=== PATIENT | female | born 1965 | race Caucasian/White ===

== ENCOUNTER 2016-12-02 19:20 | Emergency (ER) | payer MEDICARE, MEDICAID ==
[~2016-12-02] VITALS: Ht 157.5 cm; Wt 100.8 kg
[2016-12-02] MEDS ORDERED: ATORVASTATIN CA40 MG PO (19:46)
[2016-12-02] MEDS ORDERED: LOPRESSOR50 M1 PO (19:46)
[2016-12-02] MEDS ORDERED: PLAVIX75 MG PO (19:46)
[2016-12-02] MEDS ORDERED: PEPCID20 MG PO (19:47)
[2016-12-02] MEDS ORDERED: CO Q 10100 MG PO (19:47)
[2016-12-02] MEDS ORDERED: LEVOTHYROXIN137 MCG PO (19:48)
[2016-12-02] MEDS ORDERED: ASPIRIN 8181 MG PO (19:49)
[2016-12-02] MEDS ORDERED: PERCOCET 5/325M1 TAB PO (21:33)
[2016-12-02 21:45] VITALS: BP 126/74
== END 2016-12-02 21:45 | disposition home or self-care (01) ==
LOC: ED 19:20
DX: S80.11XA Contusion of right lower leg, initial encounter (principal); W22.09XA Striking against other stationary object, initial encounter; Y93.E6 Activity, residential relocation; Y92.007 Garden or yard of unspecified non-institutional (private) residence as the place of occurrence of the external cause

== ENCOUNTER 2017-08-31 22:53 | Emergency (ER) | payer MEDICARE, MEDICAID ==
[~2017-08-31] VITALS: Ht 157.5 cm; Wt 98.6 kg
[~2017-08-31 22:53] MED LIST: ASPIRIN 8181 MG PO; ATORVASTATIN CA40 MG PO; CO Q 10100 MG PO; LEVOTHYROXIN137 MCG PO; LOPRESSOR50 M1 PO; PEPCID20 MG PO; PERCOCET 5/325M1 TAB PO; PLAVIX75 MG PO
[2017-09-01] MEDS ORDERED: PERCOCET 5/325M1 TAB PO (03:01)
[2017-09-01 04:52] VITALS: BP 132/76
== END 2017-09-01 04:50 | disposition home or self-care (01) ==
LOC: ED 22:53
DX: S93.401A Sprain of unspecified ligament of right ankle, initial encounter (principal); G89.29 Other chronic pain; M54.9 Dorsalgia, unspecified; E03.9 Hypothyroidism, unspecified; I25.2 Old myocardial infarction; W19.XXXA Unspecified fall, initial encounter; Y92.009 Unspecified place in unspecified non-institutional (private) residence as the place of occurrence of the external cause

== ENCOUNTER 2018-01-12 22:02 | Emergency (ER) | payer MEDICARE, MEDICAID ==
[~2018-01-12] VITALS: Ht 157.5 cm; Wt 94.0 kg
[2018-01-12] MEDS ORDERED: ABILIFY5 MG PO (22:12)
[2018-01-12 22:34] LABS: HEMATOCRIT 46.9 % (37.0-47.0); HEMOGLOBIN 15.6 g/dl (12.0-16.0); IMMATURE GRANULOCYTES 0.4 % (0.0-1.0); MEAN CELL VOLUME 89.3 fL CALC (80.0-100.0); MEAN CORPUSCULAR HGB 29.7 pG CALC (26.0-32.0); MEAN CORPUSCULAR HGB CONC 33.3 g/L CALC (32.0-36.0); NEUT# 8.57 thou/uL (2.00-7.15); RED BLOOD COUNT 5.25 mill/uL (4.20-5.60); RED CELL DISTRI WIDTH 13.4 % (11.5-15.5)
[2018-01-12 22:35] LABS: URINE BILIRUBIN - DIPSTICK NEGATIVE (NEGATIVE); URINE BLOOD DIPSTICK SMALL (NEGATIVE); URINE CLARITY SL CLOUDY; URINE COLOR YELLOW; URINE GLUCOSE - DIPSTICK NEGATIVE (NEGATIVE); URINE KETONE NEGATIVE (NEGATIVE); URINE LEUK ESTERASE NEGATIVE (NEGATIVE); URINE NITRITE - DIPSTICK NEGATIVE (Negative); URINE PH 5.5 (4.5-8.0); URINE PROTEIN - DIPSTICK NEGATIVE (NEG-TRACE); URINE SPECIFIC GRAVITY >=1.030; URINE UROBILINOGEN - DIPSTICK 0.2 E.U./dL (0.2)
[2018-01-12 22:43] LABS: URINE BACTERIA FEW hpf; URINE CALCIUM OXALATE CRYSTALS MODERATE lpf; URINE MUCUS MANY hpf (NONE-FEW); URINE SQUAMOUS EPITHELIAL CELL MANY EPI/hpf (0-FEW)
[2018-01-12 22:47] LABS: ALBUMIN 4.3 g/dL (3.2-5.0); ALKALINE PHOSPHATASE 123 u/l (38-126); AMYLASE 61 u/l (30-110); ANION GAP 15 (6-22 (CALC)); BILIRUBIN, TOTAL 0.8 mg/dL (0.0-1.4); BUN 12 mg/dL (7-17); BUN/CREATININE RATIO 16 (12-20 (CALC)); CARBON DIOXIDE 28 mmol/l (22-30); CHLORIDE 105 mmol/l (95-108); CREATININE 0.8 mg/dL (0.5-1.0); GFR > 60 ML/MIN (>=60 (CALC)); GFR FOR AFR.AMER. > 60 ML/MIN (>=60 (CALC)); LIPASE 75 u/l (23-300); POTASSIUM 3.4 mmol/l (3.5-5.1); SGOT/AST 46 u/l (14-36); SGPT/ALT 52 u/l (9-52); SODIUM 144 mmol/l (137-146); TOTAL PROTEIN 7.9 g/dL (6.3-8.2)
[2018-01-13] MEDS ORDERED: CIPROFLOXACN500 MG PO (01:49)
[2018-01-13] MEDS ORDERED: LORTAB 1010 MG PO (01:49)
[2018-01-13 02:13] VITALS: BP 110/64
== END 2018-01-13 02:13 | disposition home or self-care (01) ==
LOC: ED 22:02
PROVIDERS: Emergency Medicine
DX: N13.6 Pyonephrosis (principal); R11.2 Nausea with vomiting, unspecified; R10.9 Unspecified abdominal pain; Z87.442 Personal history of urinary calculi
CPT/HCPCS: Q9967

== ENCOUNTER 2019-01-24 21:17 | Emergency (ER) | payer MEDICARE, MEDICAID ==
[~2019-01-24] VITALS: Ht 157.5 cm; Wt 100.0 kg
[~2019-01-24 21:17] MED LIST changes: +ABILIFY5 MG PO; +CIPROFLOXACN500 MG PO; +LORTAB 1010 MG PO
[2019-01-24 22:00] LABS: HEMATOCRIT 43.3 % (37.0-47.0); HEMOGLOBIN 14.2 g/dl (12.0-16.0); IMMATURE GRANULOCYTES 0.4 % (0.0-5.0); MEAN CELL VOLUME 88.2 fL CALC (80.0-100.0); MEAN CORPUSCULAR HGB 28.9 pG CALC (26.0-32.0); MEAN CORPUSCULAR HGB CONC 32.8 g/L CALC (32.0-36.0); NEUT# 6.48 thou/uL (2.00-7.15); RED BLOOD COUNT 4.91 mill/uL (4.20-5.60); RED CELL DISTRI WIDTH 13.6 % (11.5-15.5)
[2019-01-24 22:02] LABS: URINE BILIRUBIN - DIPSTICK NEGATIVE (NEGATIVE); URINE BLOOD DIPSTICK TRACE-INTACT (NEGATIVE); URINE COLOR YELLOW; URINE GLUCOSE - DIPSTICK NEGATIVE (NEGATIVE); URINE KETONE NEGATIVE (NEGATIVE); URINE LEUK ESTERASE TRACE (NEGATIVE); URINE NITRITE - DIPSTICK NEGATIVE (Negative); URINE PH 5.5 (4.5-8.0); URINE PROTEIN - DIPSTICK NEGATIVE (NEG-TRACE); URINE SPECIFIC GRAVITY >=1.030
[2019-01-24 22:36] LABS: ALBUMIN 3.7 g/dL (3.2-5.0); ALKALINE PHOSPHATASE 106 u/l (38-126); ANION GAP 11 (6-22 (CALC)); BILIRUBIN, TOTAL 0.5 mg/dL (0.0-1.4); BUN 14 mg/dL (7-17); BUN/CREATININE RATIO 21 (12-20 (CALC)); CARBON DIOXIDE 28 mmol/l (22-30); CHLORIDE 107 mmol/l (95-108); CREATININE 0.6 mg/dL (0.5-1.0); GFR > 60 ML/MIN (>=60 (CALC)); GFR FOR AFR.AMER. > 60 ML/MIN (>=60 (CALC)); POTASSIUM 3.7 mmol/l (3.5-5.1); SGOT/AST 20 u/l (14-36); SODIUM 143 mmol/l (137-146); TOTAL PROTEIN 6.5 g/dL (6.3-8.2)
[2019-01-24] MEDS ORDERED: TORADOL PO (23:16)
[2019-01-24 23:35] VITALS: BP 116/66
== END 2019-01-24 23:39 | disposition home or self-care (01) ==
LOC: ED 21:17
PROVIDERS: Family Medicine
DX: M25.551 Pain in right hip (principal); R10.31 Right lower quadrant pain; E03.9 Hypothyroidism, unspecified; Z87.442 Personal history of urinary calculi

== ENCOUNTER 2019-04-19 20:55 | Emergency (ER) | payer MEDICARE, MEDICAID ==
[~2019-04-19] VITALS: Ht 157.5 cm; Wt 96.4 kg
[~2019-04-19 20:55] MED LIST changes: +TORADOL PO
[2019-04-19] MEDS ORDERED: MONTELUKAST SOD10 MG PO (21:41)
[2019-04-19] MEDS ORDERED: ALENDRONATE SOD70 MG PO (21:41)
[2019-04-19] MEDS ORDERED: SYNTHROID175 MCG PO (21:42)
[2019-04-19] MEDS ORDERED: TRAZODONE50 MG PO (21:43)
[2019-04-19] MEDS ORDERED: TRAMADOL HCL50 MG PO (22:51)
[2019-04-19 23:00] VITALS: BP 128/77
== END 2019-04-19 23:08 | disposition home or self-care (01) ==
LOC: ED 20:55
DX: S93.401A Sprain of unspecified ligament of right ankle, initial encounter (principal); S93.601A Unspecified sprain of right foot, initial encounter; W01.0XXA Fall on same level from slipping, tripping and stumbling without subsequent striking against object, initial encounter; X50.1XXA Overexertion from prolonged static or awkward postures, initial encounter; Y92.009 Unspecified place in unspecified non-institutional (private) residence as the place of occurrence of the external cause

== ENCOUNTER 2019-04-26 11:31 | Emergency (ER) | payer MEDICARE, MEDICAID ==
[~2019-04-26] VITALS: Ht 157.5 cm; Wt 96.0 kg
[~2019-04-26 11:31] MED LIST changes: +ALENDRONATE SOD70 MG PO; +MONTELUKAST SOD10 MG PO; +SYNTHROID175 MCG PO; +TRAMADOL HCL50 MG PO; +TRAZODONE50 MG PO
[2019-04-26] MEDS ORDERED: ASPIRIN 81 LOW81 MG PO (12:13)
[2019-04-26] MEDS ORDERED: LORTAB 1010 MG PO (12:47)
[2019-04-26] MEDS ORDERED: FLEXERIL PO (12:48)
[2019-04-26 12:59] VITALS: BP 130/75
== END 2019-04-26 13:26 | disposition home or self-care (01) ==
LOC: ED 11:31
DX: S33.5XXA Sprain of ligaments of lumbar spine, initial encounter (principal); E03.9 Hypothyroidism, unspecified; X50.0XXA Overexertion from strenuous movement or load, initial encounter; Y92.89 Other specified places as the place of occurrence of the external cause

== ENCOUNTER 2020-01-09 12:13 | Emergency (ER) | payer MEDICARE, MEDICAID ==
[~2020-01-09 12:13] MED LIST changes: +ASPIRIN 81 LOW81 MG PO; +FLEXERIL PO
[2020-01-09 14:53] VITALS: BP 130/81
== END 2020-01-09 14:57 | disposition home or self-care (01) ==
LOC: ED 12:13
DX: R07.81 Pleurodynia (principal); E03.9 Hypothyroidism, unspecified; I25.2 Old myocardial infarction

== ENCOUNTER 2020-01-13 19:18 | Observation (INO) | payer MEDICARE, MEDICAID ==
[~2020-01-13] VITALS: Ht 157.5 cm; Wt 89.5 kg
--- NOTE | 2020-01-13 19:39 | NUR ---
PT. TO ROOM 9 WITH C/O EPIGASTRIC CP STARTING APPROX 45 MIN AGO. PT. STATES SHE HAD A MS WITH STENT PLACEMENT 5 YEARS AGO.
[2020-01-13] MEDS ORDERED: DITROPAN5 MG/TA1 PO (20:17)
[2020-01-13] MEDS ORDERED: METOPROLOL SUCC50 MG PO (20:18)
[2020-01-13 20:19] LABS: HEMOGLOBIN 13.4 g/dl (12.0-16.0); IMMATURE GRANULOCYTES 0.5 % (0.0-5.0); MEAN CORPUSCULAR HGB 27.7 pG CALC (26.0-32.0); MEAN CORPUSCULAR HGB CONC 31.9 g/dL CAL (32.0-36.0); NEUT# 7.12 thou/uL (2.00-7.15); RED BLOOD COUNT 4.83 mill/uL (4.20-5.60); RED CELL DISTRI WIDTH 14.7 % (11.5-15.5)
[2020-01-13] MEDS ORDERED: AMLODIPINE BESYL5 MG PO (20:20)
[2020-01-13 20:22] LABS: URINE BILIRUBIN - DIPSTICK NEGATIVE (NEGATIVE); URINE BLOOD DIPSTICK NEGATIVE (NEGATIVE); URINE COLOR YELLOW; URINE GLUCOSE - DIPSTICK NEGATIVE (NEGATIVE); URINE KETONE NEGATIVE (NEGATIVE); URINE NITRITE - DIPSTICK NEGATIVE (Negative); URINE PROTEIN - DIPSTICK NEGATIVE (NEG-TRACE); URINE UROBILINOGEN - DIPSTICK 0.2 E.U./dL (0.2)
[2020-01-13 20:24] LABS: URINE LEUK ESTERASE MODERATE (NEGATIVE)
[2020-01-13 20:30] LABS: URINE RBC 0-2 RBC/hpf (0-5); URINE SQUAMOUS EPITHELIAL CELL FEW EPI/hpf (0-FEW)
[2020-01-13 20:32] LABS: BARBITURATES NEGATIVE (NEGATIVE); COCAINE NEGATIVE (NEGATIVE); METHADONE NEGATIVE (NEGATIVE); OXCYCODONE NEGATIVE (NEGATIVE); TETRAHYDROCANNABIONOL NEGATIVE (NEGATIVE); TRICYLIC ANTIDEPRESSANTS NEGATIVE (NEGATIVE)
[2020-01-13 20:37] LABS: ALBUMIN 4.2 g/dL (3.2-5.0); ALKALINE PHOSPHATASE 119 u/l (38-126); AMYLASE 81 u/l (30-110); ANION GAP 10 (6-22 (CALC)); BILIRUBIN, TOTAL 0.8 mg/dL (0.0-1.4); BUN 13 mg/dL (7-17); BUN/CREATININE RATIO 19 (12-20 (CALC)); CARBON DIOXIDE 30 mmol/l (22-30); CHLORIDE 103 mmol/l (95-108); CREATININE 0.7 mg/dL (0.5-1.0); GFR > 60 ML/MIN (>=60 (CALC)); GFR FOR AFR.AMER. > 60 ML/MIN (>=60 (CALC)); LIPASE 96 u/l (23-300); SGOT/AST 42 u/l (14-36); SODIUM 139 mmol/l (137-146); TOTAL PROTEIN 8.1 g/dL (6.3-8.2)
--- NOTE | 2020-01-13 20:39 | NUR ---
PT. STATES SHE STILL HAS A C/O EPIGASTRIC PAIN.
[2020-01-13 20:46] LABS: POTASSIUM 4.3 mmol/l (3.5-5.1)
[2020-01-13 20:49] LABS: MYOGLOBIN 76 ng/mL (0 - 62)
--- NOTE | 2020-01-13 20:59 | NUR ---
IV PAIN MED AND IV ANTIEMETIC GIVEN PER MD ORDER.
--- NOTE | 2020-01-13 21:30 | NUR ---
MD IN ROOM TO DISCUSS CLINICAL FINDINGS AND MAKE PT. AWARE OF ADMISSION, PT. VERBALIZED UNDERSTANDING.
--- NOTE | 2020-01-13 21:44 | NUR ---
PT. STATES HER EPI GASTRIC PAIN IS NOW DECREASED TO A 6 ON A SCALE OF 1-10.
--- NOTE | 2020-01-13 22:33 | NUR ---
Admission Note Report Given to: RAN TORREZ Transported by: Wheelchair X Stretcher Transported with: X Nurse Transporter X Patent IV O2 X Chief Construction Inspector Location: ICU X [facility]
--- NOTE | 2020-01-13 22:34 | NUR ---
TO [facility] FLOOR VIA STRETCHER.
[2020-01-13 23:35] VITALS: BP 130/86
--- NOTE | 2020-01-14 00:37 | NUR ---
PT ARRIVES TO UNIT 01/13/20 @ 2240 VIA WC, ACCOMPANIED BY Minnie TANG RN. PT ADMITTED TO ROOM 262. ORIENTED TO UNIT AND ROOM. PHYSICAL ASSESMENT COMPLETE. VS TAKEN BY SUPERVISOR [employer]S EDUCATION ASSESSED. PLAN OF CARE REVIEWED. PT VERBALIZES UNDERSTANDING AND DENIES QUESTIONS. PROVIDED W/ TV DINNER TRAY. DENIES FURTHER NEEDS @ THIS TIME. BED LOCKED IN LOW POSITION W/ BEDRAILS UP X2. ITEMS WITHIN REACH. CALL YANEZ WITHIN REACH, AGREES TO CALL PRN.
[2020-01-14 03:36] VITALS: BP 93/68
--- NOTE | 2020-01-14 05:56 | NUR ---
PHYSICAL ASSESMENT REMAINS UNCHANGED FROM START OF SHIFT BASELINE. AM VS AND TELEMETRY READING ASSESSED. PT RESTING IN BED COMFORTABLY, DENIES NEEDS @ THIS TIME. ITEMS REMAIN WITHIN REACH. BED REMAINS LOCKED IN LOW POSITION W/ BED RAILS UP X2. CALL YANEZ REMAINS WITHIN REACH, AGREES TO CALL PRN.
[2020-01-14 10:59] VITALS: BP 101/60
[2020-01-14] MEDS ORDERED: KEFLEX500 MG PO (12:18)
--- NOTE | 2020-01-14 13:02 | NUR ---
RESIDENT IS ALERT AND ORIENTED AND ABLE TO MAKE NEEDS KNOWN. SKIN INTACT AND WARM TO TOUCH. MEDICATIONS GIVEN AND TOLERATED WELL. RESIENT MEAL AND FLUID INTAKE GOOD. RESIDENT TO BE DISCHARGEDC HOME TODAY. DENIES PAIN OR DISCOMFORT. CONTINENT OF B/B AND ABLE TO SELF ASSIST TO TOILET. CALL LIGHT WITHIN REACH. WILL CONTINUE TO OBSERVE
--- NOTE | 2020-01-14 17:07 | NUR ---
RESIDENT DISCHARGED HOME AT 4PM. DISCUSSED AND EDUCATED ON DISCHARGE MEDICATIONS AND INSTRUCTIONS AND RESIDENT STATED SHE UNDERSTOOD. ALL PERSONAL BELONGING TAKEN WITH RESIDENT. RESIDENT EDUCATED THAT SHE SHOULD CONTINUE abT THERAPY AT HOME FOR UTI AND WHAT PHARMACY TO PICK MEDICATION UP FROM AND RESIDNET STATED THAT SHE UNDERSTOOD. TELEMETRY REMOVED AND iv REMOVED FROM RAC. RESIDENT TOLERATED WELL.
== END 2020-01-14 16:12 | disposition home or self-care (01) ==
LOC: ED 19:18 → ED-I 21:27 → ED 21:28 → MS2 21:29 → ED-I 21:29 → MS2 21:30
PROVIDERS: Emergency Medicine; ADMIT Internal Medicine; ATTEND Internal Medicine
DX: R07.9 Chest pain, unspecified (principal); N39.0 Urinary tract infection, site not specified; F41.9 Anxiety disorder, unspecified; I25.10 Atherosclerotic heart disease of native coronary artery without angina pectoris; I25.2 Old myocardial infarction; E03.9 Hypothyroidism, unspecified; E66.9 Obesity, unspecified; Z68.36 Body mass index [BMI] 36.0-36.9, adult; Z87.440 Personal history of urinary (tract) infections; Z87.891 Personal history of nicotine dependence; Z79.02 Long term (current) use of antithrombotics/antiplatelets; Z95.5 Presence of coronary angioplasty implant and graft; Z11.59 Encounter for screening for other viral diseases
CPT/HCPCS: G0378; S0164

== ENCOUNTER 2021-01-18 22:01 | Emergency (ER) | payer MEDICARE, MEDICAID ==
[~2021-01-18] VITALS: Ht 157.5 cm; Wt 97.0 kg
[~2021-01-18 22:01] MED LIST changes: +AMLODIPINE BESYL5 MG PO; +DITROPAN5 MG/TA1 PO; +KEFLEX500 MG PO; +METOPROLOL SUCC50 MG PO
[2021-01-18 23:26] LABS: HEMATOCRIT 45.1 % (37.0-47.0); HEMOGLOBIN 14.6 g/dl (12.0-16.0); IMMATURE GRANULOCYTES 0.2 % (0.0-5.0); MEAN CELL VOLUME 89.3 fL CALC (80.0-100.0); MEAN CORPUSCULAR HGB 28.9 pG CALC (26.0-32.0); MEAN CORPUSCULAR HGB CONC 32.4 g/dL CAL (32.0-36.0); NEUT# 6.87 thou/uL (2.00-7.15); RED BLOOD COUNT 5.05 mill/uL (4.20-5.60); RED CELL DISTRI WIDTH 14.4 % (11.5-15.5)
[2021-01-18 23:33] LABS: ACT PARTIAL THROMBO TIME 22.1 SECONDS (20.0-32.5); PROTHROMBIN TIME 9.9 SECONDS (9.0-12.5)
[2021-01-18 23:34] LABS: ALBUMIN 3.8 g/dL (3.2-5.0); ALKALINE PHOSPHATASE 92 u/l (38-126); AMYLASE 42 u/l (30-110); ANION GAP 10 (6-22 (CALC)); BUN 14 mg/dL (7-17); BUN/CREATININE RATIO 21 (12-20 (CALC)); CARBON DIOXIDE 30 mmol/l (22-30); CHLORIDE 102 mmol/l (95-108); CREATININE 0.7 mg/dL (0.5-1.0); GFR > 60 ML/MIN (>=60 (CALC)); GFR FOR AFR.AMER. > 60 ML/MIN (>=60 (CALC)); LIPASE 80 u/l (23-300); POTASSIUM 3.8 mmol/l (3.5-5.1); SGOT/AST 33 u/l (14-36); SODIUM 138 mmol/l (137-146); TOTAL PROTEIN 7.1 g/dL (6.3-8.2)
[2021-01-18 23:37] LABS: BILIRUBIN, TOTAL 0.5 mg/dL (0.0-1.4)
[2021-01-18 23:43] LABS: D-DIMER 0.37 mg/L (0.19-0.60)
[2021-01-19 00:10] VITALS: BP 119/76
== END 2021-01-19 00:10 | disposition left against medical advice (07) ==
LOC: ED 22:01
DX: R07.9 Chest pain, unspecified (principal); I25.2 Old myocardial infarction; Z95.5 Presence of coronary angioplasty implant and graft; Z91.19 Patient's noncompliance with other medical treatment and regimen; Z20.822 Contact with and (suspected) exposure to COVID-19

== ENCOUNTER 2021-07-12 15:00 | Emergency (ER) | payer MEDICARE, MEDICAID ==
[~2021-07-12] VITALS: Ht 157.5 cm; Wt 80.0 kg
[2021-07-12 18:59] VITALS: BP 118/68
== END 2021-07-12 19:11 | disposition home or self-care (01) ==
LOC: ED 15:00
DX: M25.571 Pain in right ankle and joints of right foot (principal); E66.9 Obesity, unspecified; Z68.32 Body mass index [BMI] 32.0-32.9, adult; Z95.5 Presence of coronary angioplasty implant and graft; M79.661 Pain in right lower leg

== ENCOUNTER 2021-09-29 13:21 | Emergency (ER) | payer MEDICARE, MEDICAID ==
[~2021-09-29] VITALS: Ht 157.5 cm; Wt 105.0 kg
[2021-09-29 13:58] LABS: GFR > 60 ML/MIN (>=60 (CALC)); GFR FOR AFR.AMER. > 60 ML/MIN (>=60 (CALC))
[2021-09-29 14:03] LABS: HEMATOCRIT 46.4 % (37.0-47.0); HEMOGLOBIN 14.8 g/dl (12.0-16.0); IMMATURE GRANULOCYTES 0.1 % (0.0-5.0); MEAN CELL VOLUME 88.4 fL CALC (80.0-100.0); MEAN CORPUSCULAR HGB 28.2 pG CALC (26.0-32.0); MEAN CORPUSCULAR HGB CONC 31.9 g/dL CAL (32.0-36.0); NEUT# 10.43 thou/uL (2.00-7.15); RED BLOOD COUNT 5.25 mill/uL (4.20-5.60); RED CELL DISTRI WIDTH 14.2 % (11.5-15.5)
[2021-09-29 14:06] LABS: ALBUMIN 3.5 g/dL (3.2-5.0); ALKALINE PHOSPHATASE 129 u/l (38-126); ANION GAP 13 (6-22 (CALC)); BILIRUBIN, TOTAL 0.7 mg/dL (0.0-1.4); BUN 12 mg/dL (7-17); BUN/CREATININE RATIO 17 (12-20 (CALC)); CARBON DIOXIDE 26 mmol/l (22-30); CHLORIDE 106 mmol/l (95-108); CREATININE 0.7 mg/dL (0.5-1.0); GFR > 60 ML/MIN (>=60 (CALC)); GFR FOR AFR.AMER. > 60 ML/MIN (>=60 (CALC)); LIPASE 40 u/l (23-300); POTASSIUM 3.4 mmol/l (3.5-5.1); SGOT/AST 25 u/l (14-36); SODIUM 142 mmol/l (137-146); TOTAL PROTEIN 6.8 g/dL (6.3-8.2)
[2021-09-29 15:50] LABS: URINE BILIRUBIN - DIPSTICK NEGATIVE (NEGATIVE); URINE BLOOD DIPSTICK TRACE-INTACT (NEGATIVE); URINE COLOR YELLOW; URINE GLUCOSE - DIPSTICK NEGATIVE (NEGATIVE); URINE KETONE NEGATIVE (NEGATIVE); URINE LEUK ESTERASE NEGATIVE (NEGATIVE); URINE PROTEIN - DIPSTICK NEGATIVE (NEG-TRACE); URINE UROBILINOGEN - DIPSTICK 0.2 E.U./dL (0.2)
[2021-09-29 16:03] LABS: URINE NITRITE - DIPSTICK NEGATIVE (Negative)
[2021-09-29] MEDS ORDERED: ZOFRAN4 MG/TAB PO (17:42)
[2021-09-29 18:00] VITALS: BP 104/70
== END 2021-09-29 18:00 | disposition home or self-care (01) ==
LOC: ED 13:21
PROVIDERS: Family Medicine
DX: R10.11 Right upper quadrant pain (principal); R10.13 Epigastric pain; R11.2 Nausea with vomiting, unspecified; I10 Essential (primary) hypertension; E66.9 Obesity, unspecified; Z68.41 Body mass index [BMI] 40.0-44.9, adult; Z95.5 Presence of coronary angioplasty implant and graft; R07.9 Chest pain, unspecified
CPT/HCPCS: Q9967

== ENCOUNTER 2022-01-01 09:01 | Emergency (ER) | payer MEDICARE, MEDICAID ==
[~2022-01-01] VITALS: Ht 157.5 cm; Wt 100.0 kg
[2022-01-01] VITALS (9 sets, daily range): BP systolic 97–122; BP diastolic 42–69
[~2022-01-01 09:01] MED LIST changes: +ZOFRAN4 MG/TAB PO
[2022-01-01] MEDS ORDERED: PERCOCET 5/325M1 TAB PO (09:26)
[2022-01-01] MEDS ORDERED: DOXYCYCLINE100 MG PO (10:42)
== END 2022-01-01 11:24 | disposition home or self-care (01) ==
LOC: ED 09:01
DX: S90.414A Abrasion, right lesser toe(s), initial encounter (principal); L03.031 Cellulitis of right toe; I10 Essential (primary) hypertension; F41.9 Anxiety disorder, unspecified; E05.90 Thyrotoxicosis, unspecified without thyrotoxic crisis or storm; W22.8XXA Striking against or struck by other objects, initial encounter; Y92.009 Unspecified place in unspecified non-institutional (private) residence as the place of occurrence of the external cause; Z95.5 Presence of coronary angioplasty implant and graft

== ENCOUNTER 2022-03-04 16:36 | Emergency (ER) | payer OTHER, MEDICAID, MEDICARE ==
[2022-03-04] VITALS (9 sets, daily range): BP systolic 109–145; BP diastolic 61–100
[~2022-03-04] VITALS: Ht 157.5 cm; Wt 100.0 kg
[~2022-03-04 16:36] MED LIST changes: +DOXYCYCLINE100 MG PO
[2022-03-04 17:19] LABS: IMMATURE GRANULOCYTES 0.1 % (0.0-5.0); MEAN CELL VOLUME 87.8 fL CALC (80.0-100.0); NEUT# 5.62 thou/uL (2.00-7.15); RED BLOOD COUNT 4.49 mill/uL (4.20-5.60)
[2022-03-04 17:20] LABS: HEMATOCRIT 39.4 % (37.0-47.0)
[2022-03-04 17:38] LABS: BUN 10 mg/dL (7-17); BUN/CREATININE RATIO 21 (12-20 (CALC)); CARBON DIOXIDE 21 mmol/l (22-30); CREATININE 0.5 mg/dL (0.5-1.0); GFR FOR AFR.AMER. > 60 ML/MIN (>=60 (CALC)); GFR OTHER RACES > 60 ML/MIN (>=60 (CALC)); SGOT/AST 17 u/l (14-36); SODIUM 143 mmol/l (137-146)
[2022-03-04 17:40] LABS: ALBUMIN 2.1 g/dL (3.2-5.0); ALKALINE PHOSPHATASE 60 u/l (38-126); ANION GAP 4 (6-22 (CALC)); BILIRUBIN, TOTAL 0.1 mg/dL (0.0-1.4); CHLORIDE 120 mmol/l (95-108); TOTAL PROTEIN 4.4 g/dL (6.3-8.2)
[2022-03-04 17:41] LABS: POTASSIUM 2.1 mmol/l (3.5-5.1)
[2022-03-04 19:54] LABS: URINE BILIRUBIN - DIPSTICK NEGATIVE (NEGATIVE); URINE BLOOD DIPSTICK NEGATIVE (NEGATIVE); URINE COLOR YELLOW; URINE GLUCOSE - DIPSTICK NEGATIVE (NEGATIVE); URINE KETONE NEGATIVE (NEGATIVE); URINE LEUK ESTERASE TRACE (NEGATIVE); URINE PROTEIN - DIPSTICK NEGATIVE (NEG-TRACE); URINE SPECIFIC GRAVITY 1.025; URINE UROBILINOGEN - DIPSTICK 0.2 E.U./dL (0.2)
[2022-03-04 19:56] LABS: URINE NITRITE - DIPSTICK NEGATIVE (Negative)
[2022-03-04 22:42] LABS: BUN 11 mg/dL (7-17); BUN/CREATININE RATIO 16 (12-20 (CALC)); CREATININE 0.7 mg/dL (0.5-1.0); GFR FOR AFR.AMER. > 60 ML/MIN (>=60 (CALC)); GFR OTHER RACES > 60 ML/MIN (>=60 (CALC)); SODIUM 139 mmol/l (137-146)
[2022-03-04 22:44] LABS: ANION GAP 9 (6-22 (CALC)); CARBON DIOXIDE 30 mmol/l (22-30); CHLORIDE 104 mmol/l (95-108); POTASSIUM 3.5 mmol/l (3.5-5.1)
== END 2022-03-04 23:45 | disposition home or self-care (01) | DRG 563 ==
LOC: ED 16:36
PROVIDERS: Family Medicine
DX: S46.912A Strain of unspecified muscle, fascia and tendon at shoulder and upper arm level, left arm, initial encounter (principal); S46.811A Strain of other muscles, fascia and tendons at shoulder and upper arm level, right arm, initial encounter; T14.8XXA Other injury of unspecified body region, initial encounter; I10 Essential (primary) hypertension; F41.9 Anxiety disorder, unspecified; E05.90 Thyrotoxicosis, unspecified without thyrotoxic crisis or storm; V49.40XA Driver injured in collision with unspecified motor vehicles in traffic accident, initial encounter; Z95.5 Presence of coronary angioplasty implant and graft
CPT/HCPCS: J3475; Q9967

== ENCOUNTER 2022-12-10 05:31 | Emergency (ER) | payer MEDICARE, MEDICAID ==
[~2022-12-10] VITALS: Ht 157.5 cm; Wt 98.0 kg
[2022-12-10 05:47] VITALS: BP 132/73
[2022-12-10 05:53] LABS: BASO% 0.4 % (0-3); EOS% 2.1 % (0-8); HEMATOCRIT 43.4 % (37.0-47.0); HEMOGLOBIN 13.9 g/dl (12.0-16.0); IMMATURE GRANULOCYTES 0.2 % (0.0-5.0); LYMPH% 9.1 % (15-41); MEAN CELL VOLUME 84.8 fL CALC (80.0-100.0); MEAN CORPUSCULAR HGB 27.1 pG CALC (26.0-32.0); MONO% 7.2 % (2-13); NEUT# 10.67 thou/uL (2.00-7.15); RED BLOOD COUNT 5.12 mill/uL (4.20-5.60); RED CELL DISTRI WIDTH 14.2 % (11.5-15.5)
[2022-12-10 06:00] VITALS: BP 141/71
[2022-12-10 06:50] LABS: ALBUMIN 3.8 g/dL (3.2-5.0); ALKALINE PHOSPHATASE 114 u/l (38-126); ANION GAP 10 (6-22 (CALC)); BILIRUBIN, TOTAL 0.5 mg/dL (0.02-1.3); BUN 13 mg/dL (7-17); BUN/CREATININE RATIO 20 (12-20 (CALC)); CARBON DIOXIDE 28 mmol/l (22-30); CHLORIDE 106 mmol/l (95-108); CREATININE 0.6 mg/dL (0.5-1.0); GFR FOR AFR.AMER. > 60 ML/MIN (>=60 (CALC)); GFR OTHER RACES > 60 ML/MIN (>=60 (CALC)); POTASSIUM 3.6 mmol/l (3.5-5.1); SGOT/AST 31 u/l (14-36); SODIUM 141 mmol/l (137-146); TOTAL PROTEIN 6.9 g/dL (6.3-8.2)
[2022-12-10] MEDS ORDERED: LEVAQUIN750 M1 PO (07:01)
[2022-12-10 07:09] VITALS: BP 141/71
== END 2022-12-10 08:10 | disposition home or self-care (01) ==
LOC: ED 05:31
PROVIDERS: Family Medicine
DX: J20.9 Acute bronchitis, unspecified (principal); I10 Essential (primary) hypertension; F41.9 Anxiety disorder, unspecified; E03.9 Hypothyroidism, unspecified; Z20.822 Contact with and (suspected) exposure to COVID-19

== ENCOUNTER 2024-07-24 07:44 | Day surgery (SDC) | payer MEDICARE, MEDICAID ==
[~2024-07-24 07:44] MED LIST changes: +AZO CRANBERRY250 MG PO; +B-12100 MCG PO; +BENZONATATE200 MG PO; +BUSPAR5 MG PO; +CALCI17 PO; +COQ10200 MG PO; +CYCLOBENZAPRINE10 MG PO; +DOXY-CAPS100 MG PO; +GIN-ZING100 MG PO; +GLYCOPYRROLATE 0.2 MG/ML IV ONE; +K2 PLUS D31 TAB PO; +LEVAQUIN750 M1 PO; +LEVOTHYROXIN125 MCG PO; +LIDOCAINE HCL 2% 2ML SDV IV ONE; +LOPRESSOR25 M1 PO; +MAGNESIUM500 M3 PO; +NITROGLYCER0.4 MG SL; +PERCOCET 10/31 COMBO PO; +PREDNISONE20 MG PO; +PROBIOTI2 PO; +PROPOFOL 200 MG/20 ML VIAL IV ONE; +PROVENTIL HFA108 MCG IN; +WEGOVY0.25 MG SC; +ZINC50 M1 PO; +ZITHROMAX500 MG PO; +ZOLOFT50 MG PO; +[UNRECOGNIZED DRUG - CODE] PO
[2024-07-24] MEDS ORDERED: FAMOTIDINE 10MG/ML 2ML SDV IV ONE (07:48)
[2024-07-24] MEDS ORDERED: LACTATED RINGER'S 1,000 ML IV ONE (07:48)
[2024-07-24] MEDS ORDERED: ONDANSETRON HCl 4 MG/2 ML SDV ONE (08:10)
[2024-07-24 15:39] VITALS: BP 137/99
== END 2024-07-24 09:26 | disposition home or self-care (01) ==
LOC: ORM 07:44
PROVIDERS: ATTEND Surgery
PROC: 0DB98ZX Excision of Duodenum, Via Natural or Artificial Opening Endoscopic, Diagnostic (ICD-10-PCS; principal; 2024-07-24)
PROC: 0DB78ZX Excision of Stomach, Pylorus, Via Natural or Artificial Opening Endoscopic, Diagnostic (ICD-10-PCS; 2024-07-24)
PROC: 0DB68ZX Excision of Stomach, Via Natural or Artificial Opening Endoscopic, Diagnostic (ICD-10-PCS; 2024-07-24)
PROC: 0DB58ZX Excision of Esophagus, Via Natural or Artificial Opening Endoscopic, Diagnostic (ICD-10-PCS; 2024-07-24)
DX: K21.00 Gastro-esophageal reflux disease with esophagitis, without bleeding (principal); K29.60 Other gastritis without bleeding; K31.89 Other diseases of stomach and duodenum; K31.7 Polyp of stomach and duodenum; K29.80 Duodenitis without bleeding
CPT/HCPCS: J1596; J2405